=== PATIENT | female | born 1950 | race Caucasian/White ===

== ENCOUNTER 2019-05-22 12:10 | Emergency (ER) | payer MEDICARE, SELFPAY ==
[2019-05-22 12:13] VITALS: BP 140/78; PULSE 80; RESP 20; TEMP 36.6; O2SAT 96
--- NOTE | 2019-05-22 12:24 | DI.RAD_ITS ---
EXAM: XR FOOT LT COMPLETE CLINICAL HISTORY: L lateral pain. TECHNIQUE: 2D digital imaging was performed. COMPARISON: No exams were available for comparison FINDINGS: BONES: No acute fracture is present. No bony destructive lesion is seen. JOINTS: No dislocation present. SOFT TISSUE: Normal. IMPRESSION: Unremarkable radiographs of the left foot.
--- NOTE | 2019-05-22 12:26 | ED.GENADUL_ITS ---
Discharge Plan Disposition Patient Disposition: HOME Condition: Improving Discharge Details Chief Complaint: [facility] Clinical Impression: Cellulitis of foot, left Primary Care Provider: Jenise Barrow ED Provider: Anuj Lynn Home Meds and New Rx's Prescriptions: New prednisone 20 mg tablet 40 mg PO DAILY 5 Days Qty: 10 RF: 0 cephalexin 500 mg tablet 500 mg PO TID Qty: 21 RF: 0 Continued ibuprofen 800 mg Tablet 800 mg PO PRNRF: 0 Discharge Instructions Instructions: Cellulitis (ED) Additional Instructions: Follow-up with Dr. Barrow if not improving in 5 days time. Elevate the foot to reduce discomfort today. Wear cast shoe as needed for comfort 2 to 4 days time. Take medications as prescribed. Return if develop a fever, progressive swelling or pain, or any other acute concern Medical Decision Making 68-year-old female with insidious onset over 4 days time of left foot pain and mild erythema. It is atraumatic. There is no associated fever, her vital signs are unremarkable. Differential diagnosis would include gout, bony abnormality, cellulitis. Patient underwent laboratory testing and x-ray. White blood cell count slightly elevated at 10, uric acid 4.0, CRP is 0.06. Chemistries unremarkable. X-ray unremarkable for acute process. Discussed with patient that may be early cellulitis, versus gout despite her normal inflammatory markers. We elected together to proceed with a course of treatment including Keflex and low-dose prednisone. Patient understands to follow-up with Dr. Barrow if not improving in 3 to 5 days time. She understands indications to return to the ER for reevaluation. Lab Data Lab results reviewed: Yes I reviewed the patient's lab results. Labs: Laboratory Results - last 24 hr 05/22/19 05/22/19 12:30 12:30 WBC 10.29 RBC 4.49 Hgb 13.5 Hct 40.1 MCV 89.3 MCH 30.1 MCHC 33.7 RDW 13.8 Plt Count 360 MPV 10.1 Immature Gran % 0.1 Neutrophils % 55.3 Lymphocytes % 33.3 Monocytes % 8.5 Eosinophils % 2.4 Basophils % 0.4 Absolute Neutrophils 5.69 Absolute Lymphocytes 3.43 H Absolute Monocytes 0.87 H Absolute Eosinophils 0.25 Absolute Basophils 0.04 Sodium 141 Potassium 3.6 Chloride 106 Carbon Dioxide 22.4 Anion Gap 12.6 H BUN 16 Creatinine 0.95 Estimated GFR/1.73 m2 58.68 Glucose 136 H Uric Acid 4.0 Calcium 9.3 Total Bilirubin 0.3 AST 16 ALT 15 Alkaline Phosphatase 111 C-Reactive Protein 0.06 Total Protein 8.1 Albumin 3.7 HPI General Mode of arrival: ambulatory . Date/Time Provider Initiated Documentation: 05/22/19 12:12 . Limitations to Documentation: no limitations . Information obtained by: patient . History of Present Illness 68 year old F presents to the emergency department with the chief complaint of Left foot pain over 4 days, described as moderate, Quality is described as dull and constant, and is localized to the left and lower extremity. Patient reports no radiation. and it has been constant. Rest improves symptom(s), Other factors that worsen symptoms (Weightbearing) . Patient notes denies fever/chills. Patient did receive the following treatments prior to arrival, NSAID Related Data Home Medications Medication Instructions Recorded Confirmed cephalexin 500 mg PO TID #21 tab 05/22/19 ibuprofen 800 mg PO PRN 05/22/19 prednisone 40 mg PO DAILY 5 Days #10 tab 05/22/19 Previous Rx's Medication Instructions Recorded cephalexin 500 mg PO TID #21 tab 05/22/19 prednisone 40 mg PO DAILY 5 Days #10 tab 05/22/19 Allergies Allergy/AdvReac Type Severity Reaction Status Date / Time No Known Allergies Allergy Unverified 05/22/19 12:16 General Stated Complaint: [facility] ODALYS: 3 Review of Systems Review of Systems Narrative: No fall or trauma, no fever or chills. 6 systems reviewed and otherwise negative [facility] Social History Smoking/Tobacco Use Status: Former Tobacco Use Alcohol Intake: former Substance use type: does not use Do you feel safe at home: Yes Do you feel safe in your relationship?: Yes Exam Narrative Exam Narrative: GEN: awake, alert, oriented 3. Pleasant, well groomed, interactive. HEAD: Normocephalic, atraumatic ENT: Mucous membranes moist, External ear exam unremarkable EYES: PERRL, EOMI EXT: Full ROM, left plantar foot lateral aspect with approximately 5 cm area of tenderness overlying the mid to proximal metatarsal. There is discrete overlying erythema. No fluctuance. 2+ dorsalis pedis pulse bilaterally, capillary refill less than 2 seconds Neuro: Grossly normal neurologic exam, conversant, interactive. Psych: Speech fluent, thoughts congruent, affect normal Course Vital Signs Vital signs: Vital Signs Temperature 36.6 C 05/22/19 12:13 Pulse 80 05/22/19 12:13 Respiratory Rate 20 05/22/19 12:13 Blood Pressure 140/78 05/22/19 12:13 Pulse Oximetry 96 05/22/19 12:13 Temperature 36.6 C 05/22/19 12:13 Temperature Source Skin 05/22/19 12:13 Pulse 80 05/22/19 12:13 Respiratory Rate 05/22/19 12:13 Respiratory Effort Non-Labored 05/22/19 12:18 Blood Pressure 140/78 05/22/19 12:13 Blood Pressure Position Sitting 05/22/19 12:13 Pulse Oximetry 96 05/22/19 12:13 Oxygen Delivery Method Room Air 05/22/19 12:13 Oxygen Flow Rate 0 05/22/19 12:13 Pain Level 9 05/22/19 12:22
[2019-05-22 12:43] LABS: Abs Immature Grans 0.01 k/cumm (0.0-0.09); Absolute Basophil Count 0.04 k/cumm (0.0-0.2); Absolute Eosinophil Count 0.25 k/cumm (0.0-0.7); Absolute Lymphocyte Count 3.43 k/cumm (1.2-3.4); Absolute Monocyte Count 0.87 k/cumm (0.11-0.7); Absolute Neutrophil Count 5.69 k/cumm (1.2-6.7); Basophils % 0.4; Eosinophils % 2.4; HCT 40.1 % (36.0-46.0); HGB 13.5 g/dL (12.0-15.5); Immature Grans % 0.1; Lymphocytes % 33.3; Mean Corp. HGB Concentration 33.7 g/dL (32.0-36.0); Mean Corpuscular Hemoglobin 30.1 pg (27.0-33.0); Mean Corpuscular Volume 89.3 fL (80-95); Mean Platelet Volume 10.1 fL (8.0-11.0); Monocytes % 8.5; Neutrophils % 55.3; Platelet Count 360 x1000/uL (130-400); RBC 4.49 m/cumm (4.00-5.20); RBC Distribution Width 13.8 % (11.7-14.6); White Blood Cell Count 10.29 k/cumm (4.4-10.8)
[2019-05-22 12:56] LABS: ALT 15 U/L (14-59); AST 16 U/L (15-37); Albumin 3.7 g/dL (3.4-5.0); Alkaline Phosphatase 111 U/L (46-116); Anion Gap 12.6 mmol/L (3-11); BUN 16 mg/dL (7-18); Bilirubin, Total 0.3 mg/dL (0.2-1.0); C-Reactive Protein 0.06 mg/dL (0.0-0.3); CO2 22.4 mmol/L (21.0-32.0); CREATININE 0.95 mg/dL (0.55-1.02); Calcium 9.3 mg/dL (8.5-10.1); Chloride 106 mmol/L (98-107); Estimated GFR 58.68 (mL/min/1.73m2); Glucose 136 mg/dL (70-100); Potassium 3.6 mmol/L (3.5-5.1); Sodium 141 mmol/L (136-145); Total Protein 8.1 g/dL (6.4-8.2)
--- NOTE | 2019-05-22 13:07 | DI.VRAD_ITS ---
PROCEDURE INFORMATION: Exam: XR Left Foot Complete Exam date and time: 05/22/2019 12:48 PM Clinical history: 68 years old, female; Patient HX: Left lateral foot pain xyears, increasing pain since Thursday. TECHNIQUE: Imaging protocol: XR Left foot. Views: 3 or more views. COMPARISON: No relevant prior studies available. FINDINGS: Bones/joints: There is no evidence of acute fracture.There is no evidence of malalignment or dislocation. Soft tissues: Normal. IMPRESSION: There is no evidence of acute fracture.There is no evidence of malalignment or dislocation. Dictated and Authenticated by: Nate Teixeira MD. Ordering:YOCASTA Leslie MD
== END 2019-05-22 13:55 | disposition home or self-care (01) ==
PROVIDERS: Emergency Provider Emergency Medicine; PCP Nurse Practitioner Family
DX: L03.116 Cellulitis of left lower limb (principal)
CPT/HCPCS: 29515; 36415; 80053; 99283; 73630; 84550; 85025; 86140; 99282